=== PATIENT | male | born 1965 | race Caucasian/White ===

== ENCOUNTER 2017-08-25 22:24 | Emergency (ER) | payer SELFPAY ==
--- NOTE | 2017-08-25 23:08 | Emergency Department Record ---
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 He was pulling the tractor and felt a pop in his left shoulder. The pain is sharp, hurts to move, lift, or weight bear. No weakness or numbness. He states he has had shoulder pain in the past but this is new after moving the mower. -: Hour(s) -: Yes Arthralgia Radiation: Proximal Quality: Aching, Sharp Consistency: Constant Improves with: Immobilization Worsens with: Palpation, Weight bearing Associated Symptoms: Denies other symptoms - Related Data Previous Rx's Medication Instructions Recorded Hydrocodone/APAP 7.5/325Mg [Eleva 1 each PO Q6H #12 tab 08/25/17 7.5MG/325Mg] Allergies Allergy/AdvReac Type Severity Reaction Status Date / Time No Known Drug Allergies Allergy Verified 08/25/17 23:30 Review of Systems Constitutional: Denies: Chills, Fever, Malaise, Weakness Eyes: Denies: Eye discharge ENT: Denies: Congestion, Throat pain Respiratory: Denies: Cough Cardiovascular: Denies: Chest pain Endocrine: Denies: Fatigue Gastrointestinal: Denies: Abdominal pain, Diarrhea, Nausea, Vomiting Genitourinary: Denies: Dysuria, Frequency, Hematuria Musculoskeletal: Reports: As per HPI, Arthralgia, Myalgia. Denies: Joint swelling Skin: Denies: Bruising, Change in color, Rash Neurological: Denies: Headache, Numbness, Tingling, Tremors, Weakness Psychiatric: Denies: Anxiety Hematological/Lymphatic: Denies: Easy bleeding, Easy bruising Physical Exam - General General Appearance: Alert, Oriented x3, Cooperative, No acute distress Limitations: No limitations - Head Head exam: Atraumatic, Normal inspection - Eye Eye exam: Normal appearance. negative: Conjunctival injection, Scleral icterus - ENT ENT exam: Normal exam Ear exam: Normal external inspection Nasal Exam: Normal inspection Mouth exam: Normal external inspection - Neck Neck exam: Normal inspection - Cardiovascular Cardiovascular Exam: Regular rate, Normal rhythm Peripheral Pulses: 2+: Radial (L) - Rectal Rectal exam: Deferred - exam: Deferred - Extremities Extremities exam: Normal inspection, Normal capillary refill, Tenderness. 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 - Back Back exam: Reports: Full ROM - Neurological Neurological exam: Alert, Normal gait, Oriented X3. negative: Altered, Motor sensory deficit - Psychiatric Psychiatric exam: Normal affect, Normal mood - Skin Skin exam: Dry, Intact, Normal color, Warm Course Vital Signs 08/25/17 22:39 Temperature 98.7 F Pulse Rate [ 76 Pulse Ox Probe] Respiratory 20 Rate Blood Pressure 134/73 [Right Arm] Pulse Ox 96 - Reevaluation(s) Reevaluation #1: 08/26/17 00:45 The XR was read as severe degenerative changes, no fracture or dislocation The patient has a PCP and will referred to ortho as well He was informed this is a prelim read. The final read by the radiologist will be in the AM Disposition Disposition: Discharge Clinical Impression: Left shoulder strain Qualifiers: Encounter type: initial encounter Qualified Code(s): S46.912A - Strain of unspecified muscle, fascia and tendon at shoulder and upper arm level, left arm , initial encounter Arthritis of shoulder region, left, degenerative Qualifiers: Osteoarthritis type: unspecified Qualified Code(s): M19.012 - Primary osteoarthritis, left shoulder Disposition: Home, Self-Care Condition: (1) Good Instructions: Shoulder Pain (ED), Arthritis (ED) Additional Instructions: Ice the shoulder to minimize the inflammation No lifting until pain free or see by your doctor or an orthopedic doctor Prescriptions: Hydrocodone/APAP 7.5/325Mg [Eleva 7.5MG/325Mg] 1 each PO Q6H #12 tab Referrals: [facility] [Provider Group] RANDY BROWN [DOCTOR OF OSTEOPATH] - Forms: Patient Portal Access Time of Disposition: 23:56 Quality - Quality Measures Quality Measures: N/A - Blood Pressure Screening Does Patient Have Any of the Following: No Blood Pressure Classification: Hypertensive Reading Systolic Measurement: 153 Diastolic Measurement: 90 Screening for High Blood Pressure: < Pre-Hypertensive BP, F/U Documented > [ [id number]] Pre-Hypertensive Follow-up Interventions: Referral to alternative/primary care provider.
[2017-08-25] MEDS ORDERED: HYDROCODONE/APAP 7.5/325MG TABLET PO ONE (23:51)
== END 2017-08-26 00:07 | disposition home or self-care (01) ==
LOC: ER 22:24
DX: S46.912A Strain of unspecified muscle, fascia and tendon at shoulder and upper arm level, left arm, initial encounter (principal); X50.0XXA Overexertion from strenuous movement or load, initial encounter; Y99.0 Civilian activity done for income or pay
CPT/HCPCS: 99283